=== PATIENT | male | born 1955 | race African-American/Black ===

== ENCOUNTER 2020-12-18 09:02 | Inpatient (IN) ==
[2020-12-18] MEDS ORDERED: GLUCAGON 1 MG VIAL IM PRN (09:50)
[2020-12-18] MEDS ORDERED: DEXTROSE 50% 25 GM/50 ML VIAL IV PRN (09:50)
[2020-12-18 10:54] LABS: Basophils # 0.1 10*3/uL (0.0-0.2); Basophils % 0.8 % (0.0-0.8); Eosinophils # 0.2 10*3/uL (0.0-0.87); Eosinophils % 2.4 % (0.00-10.9); Hematocrit 36.7 VOL% (42.0-52.0); Hemoglobin 11.5 GM/DL (14.0-18.0); Immature Granulocytes % 0.5 %; Immature Granulocytes Absolute 0.03 #; Lymphocytes # 1.3 10*3/uL (1.4-4.0); Mean Corpuscular HGB Conc 31.3 GM/DL (32-36); Mean Corpuscular Volume 75.1 FL (87-102); Mean Platelet Volume 10.8 FL (9.6-12.0); Monocytes % 8.1 % (1.7-12.7); Neutrophils % 68.2 % (38.7-73.9); Platelet Count 285 T/CUMM (130-400); Red Blood Count 4.89 MC/CUMM (3.8-5.5); Red Cell Distribution Width 15.4 % (9.3-17.3); White Blood Count 6.3 T/CUMM (4-12)
[2020-12-18 11:26] LABS: Albumin 3.9 G/DL (3.4-5.0); Calcium 9.5 MG/DL (8.5-10.1); Osmolality,Calculated 273.8 MOS/KG (273-304); Potassium 3.7 MMOL/L (3.5-5.1); Total Protein 7.4 G/DL (6.4-8.2)
[2020-12-18 11:34] LABS: Hypochromasia 1+; Microcytosis 1+; Ovalocytes Slight; Platelet Estimate Adequate
[2020-12-18] MEDS: SODIUM CHLORIDE 0.9% 1,000 ML IV SCH (12:18)
[2020-12-18] MEDS: CHLORHEXIDINE 0.12% ORAL RINSE 60 ML BOTTLE SWISH/SPIT SCH ×2 (12:19→20:54)
[2020-12-18] MEDS ORDERED: NITROGLYCERIN SL 0.4 MG TABLET SL PRN (14:44)
[2020-12-18] MEDS ORDERED: MORPHINE 4 MG/1 ML VIAL IV PRN (14:44)
[2020-12-18] MEDS ORDERED: CLORAZEPATE 3.75 MG TABLET PO PRN (14:44)
[2020-12-18] MEDS ORDERED: FAMOTIDINE 20 MG TABLET PO ONE (14:55)
[2020-12-18] MEDS ORDERED: DIAZEPAM 5 MG TABLET PO ONE (14:55)
[2020-12-18 15:23] LABS: ABG Base Excess 4.3 MMOL/L (-2.5-2.5); ABG HCO3 28.3 MMOL/L (20-26); ABG Oxygen Saturation 95.9 % (95-100); ABG PCO2 45.5 MM HG (35-48); ABG PH 7.419 (7.35-7.45); ABG PO2 77.1 MM HG (80-95); ABG TCO2 26.4 MMOL/L (23-27); Allen Test Positive; Pt O2 Delivery Device Room Air
[2020-12-18] MEDS: CHLORHEXIDINE 4% SOLN 118 ML BOTTLE TOP SCH ×2 (16:50→20:54)
[2020-12-19] MEDS ORDERED: PAPAVERINE 60 MG/2 ML VIAL ONE (04:26)
[2020-12-19] MEDS ORDERED: VANCOMYCIN 1,000 MG VIAL ONE (04:26)
[2020-12-19] MEDS ORDERED: VANCOMYCIN 500 MG VIAL ONE (04:27)
[2020-12-19] MEDS ORDERED: CEFUROXIME INJ 1,500 MG in SODIUM CHLORIDE 0.9% 100 ML IV ONE (05:00)
[2020-12-19] MEDS ORDERED: FAMOTIDINE 20 MG TABLET ONE (05:34)
[2020-12-19] MEDS ORDERED: DIAZEPAM 5 MG TABLET ONE (05:35)
[2020-12-19] MEDS ORDERED: PHENYLEPHRINE 10 MG/1 ML VIAL IV ONE (06:07)
[2020-12-19] MEDS ORDERED: SEVOFLURANE 1 UNIT/15 MINUTE INH ONE ×5 (06:16→09:49)
[2020-12-19] MEDS ORDERED: HEPARIN/NACL 0.9% 2 UNITS/ML 1,000 UNIT/500 ML BAG IV ONE (06:16)
[2020-12-19] MEDS ORDERED: MINERAL OIL/PETROLATUM OPH OINT 3.5 GM TUBE ONE (06:16)
[2020-12-19] MEDS ORDERED: LIDOCAINE 2% 5 ML VIAL ONE ×2 (06:18→09:50)
[2020-12-19] MEDS ORDERED: CALCIUM CHLORIDE 1,000 MG/10 ML VIAL IV ONE ×2 (06:19→07:59)
[2020-12-19] MEDS ORDERED: ETOMIDATE 40 MG/20 ML VIAL IV ONE (06:20)
[2020-12-19] MEDS ORDERED: MIDAZOLAM 10 MG/2 ML VIAL ONE ×4 (06:21→08:48)
[2020-12-19] MEDS ORDERED: SUFentanil 250 MCG/5 ML AMP ONE ×2 (06:22→08:40)
[2020-12-19] MEDS ORDERED: AMINOCAPROIC ACID 5,000 MG/20 ML VIAL ONE (06:22)
[2020-12-19] MEDS ORDERED: SODIUM CHLORIDE 0.9% 250 ML IV ONE (06:22)
[2020-12-19] MEDS ORDERED: LACTATED RINGERS 1,000 ML IV ONE (06:23)
[2020-12-19] MEDS ORDERED: SODIUM CHLORIDE 0.9% 1,000 ML IV ONE (06:24)
[2020-12-19] MEDS ORDERED: VECURONIUM 10 MG VIAL IV ONE ×3 (06:28→08:48)
[2020-12-19] MEDS ORDERED: ePHEDrine 50 MG/ML VIAL ONE (06:57)
[2020-12-19 07:34] LABS: ABG Base Excess 1.8 MMOL/L (-2.5-2.5); ABG PCO2 37.9 MM HG (35-48); ABG PH 7.441 (7.35-7.45); ABG TCO2 23.3 MMOL/L (23-27); Glucose Heart Surgery 103 MG/DL (74-106); Hematocrit Heart Surgery 31.7 PERCENT (42-52); Hemoglobin Heart Surgery 10.2 G/DL (14.0-18.0); Ionized Calcium Arterial 1.25 MMOL/L (1.21-1.46); PCO2 Patient Temp Arterial 37.9 MMHG; PH Patient Temp Arterial 7.441; Patient Temperature 37 CELCIUS; Potassium Heart/CVR 3.2 MMOL/L (3.5-5.1); Sodium Heart/CVR 140 MMOL/L (135-145)
[2020-12-19 07:58] LABS: Bilirubin,Urine Negative (Negative); Blood, Urine Moderate mg/dL (Negative); Glucose,Urine (UA) Negative (Negative); Hyaline Casts,Urine 1 /LPF (0-3); Ketones,Urine Negative (Negative); Mucus,Urine Few /LPF (Occasional); Nitrite,Urine Negative (Negative); Protein,Urine Negative; RBC,Urine 25 /HPF (0-4); Urine Appearance CLEAR (Clear); Urine Color Yellow (Yellow); Urine Specific Gravity 1.018 (1.001-1.035)
[2020-12-19] MEDS ORDERED: POTASSIUM CHLORIDE RIDER 100 ML IV ONE (07:59)
[2020-12-19] MEDS ORDERED: NITROPRUSSIDE 50 MG/2 ML VIAL ONE (07:59)
[2020-12-19] MEDS ORDERED: PHENYLEPHRINE DRIP 40 MG/250 ML PREMIX IV ONE (07:59)
[2020-12-19] MEDS ORDERED: SODIUM BICARBONATE 50 MEQ/50 ML VIAL IV ONE ×2 (07:59→09:51)
[2020-12-19] MEDS ORDERED: CALCIUM CHLORIDE 1,000 MG/10 ML SYRINGE IV ONE (08:00)
[2020-12-19] MEDS ORDERED: diphenhydrAMINE 50 MG/1 ML VIAL ONE (08:48)
[2020-12-19] MEDS ORDERED: EPINEPHrine 1 MG/ML VIAL ONE (08:50)
[2020-12-19] MEDS ORDERED: FAMOTIDINE 20 MG/2 ML VIAL IV ONE (09:16)
[2020-12-19 09:18] LABS: Hematocrit Heart Surgery 22.6 PERCENT (42-52); Hemoglobin Heart Surgery 7.2 G/DL (14.0-18.0); PCO2 Patient Temp Venous 41.8 MM HG; PH Patient Temp Venous 7.409; PO2 Patient Temp Venous 36.3 MM HG; VBG Base Excess 1.9 MEQ/L (0-4); VBG HCO3 25.8 MEQ/L (24-28); VBG Oxygen Saturation 74.2 %; VBG PCO2 46.1 MMHG (41-51); VBG PH 7.38; VBG PO2 41.7 MMHG (17-40); VBG Total CO2 25.8 MMOL/L
[2020-12-19] MEDS ORDERED: ESMOLOL 100 MG/10 ML VIAL IV ONE (09:25)
[2020-12-19] MEDS: CHLORHEXIDINE 4% SOLN 118 ML BOTTLE TOP SCH (09:26)
[2020-12-19] MEDS: CHLORHEXIDINE 0.12% ORAL RINSE 60 ML BOTTLE SWISH/SPIT SCH (09:26)
[2020-12-19 09:49] LABS: ABG Base Excess -0.3 MMOL/L (-2.5-2.5); ABG HCO3 24.2 MMOL/L (20-26); ABG PH 7.395 (7.35-7.45); Glucose Heart Surgery 257 MG/DL (74-106); Hematocrit Heart Surgery 23.6 PERCENT (42-52); Hemoglobin Heart Surgery 7.6 G/DL (14.0-18.0); PH Patient Temp Arterial 7.395; Patient Temperature 37 CELCIUS; Potassium Heart/CVR 3.4 MMOL/L (3.5-5.1); Sodium Heart/CVR 131 MMOL/L (135-145)
[2020-12-19] MEDS ORDERED: ALBUMIN 25% 25 GM/100 ML VIAL IV ONE (09:50)
[2020-12-19] MEDS ORDERED: methylPREDNISolone SOD SUC 1,000 MG/8 ML VIAL ONE (09:50)
[2020-12-19] MEDS ORDERED: MAGNESIUM SULFATE 5 GM/10 ML VIAL IV ONE (09:50)
[2020-12-19] MEDS ORDERED: DEXTROSE 5% KCL 20 MEQ 20 MEQ/1,000 ML BAG IV ONE (09:50)
[2020-12-19] MEDS ORDERED: HEPARIN 10,000 UNIT/10 ML VIAL ONE (09:51)
[2020-12-19] MEDS ORDERED: FUROSEMIDE 20 MG/2 ML VIAL ONE (09:51)
[2020-12-19] MEDS ORDERED: MANNITOL 100 GM/500 ML BAG IV ONE (09:51)
[2020-12-19] MEDS ORDERED: PROTAMINE SULFATE 250 MG/25 ML VIAL IV ONE (09:51)
[2020-12-19] MEDS: SODIUM CHLORIDE 0.9% 1,000 ML IV SCH (10:00)
[2020-12-19] MEDS ORDERED: MAGNESIUM SULF RIDER 4 GM/100 ML PREMIX IV PRN (10:01)
[2020-12-19] MEDS ORDERED: CHLORHEXIDINE 4% SOLN 118 ML BOTTLE TOP PRN (10:01)
[2020-12-19] MEDS ORDERED: ONDANSETRON 4 MG/2 ML VIAL IV PRN (10:01)
[2020-12-19] MEDS ORDERED: DEXTROSE 50% 25 GM/50 ML VIAL IV PRN ×2 (10:01)
[2020-12-19] MEDS ORDERED: MORPHINE 10 MG/1 ML VIAL IV PRN (10:01)
[2020-12-19] MEDS ORDERED: MORPHINE 4 MG/1 ML VIAL IV PRN (10:01)
[2020-12-19] MEDS ORDERED: VECURONIUM 10 MG VIAL IV PRN ×2 (10:01)
[2020-12-19] MEDS ORDERED: INSULIN REGULAR DRIP 100 ML IV SCH (10:01)
[2020-12-19] MEDS ORDERED: CALCIUM CHLORIDE 1,000 MG/10 ML SYRINGE IV PRN (10:01)
[2020-12-19] MEDS ORDERED: PHENYLEPHRINE DRIP 40 MG/250 ML PREMIX IV PRN (10:01)
[2020-12-19] MEDS ORDERED: SODIUM CHLORIDE 0.45% 1,000 ML IV SCH ×2 (10:01)
[2020-12-19] MEDS ORDERED: POTASSIUM CHLORIDE RIDER 10 MEQ in PREMIX 1 EACH IV PRN (10:01)
[2020-12-19] MEDS ORDERED: MIDAZOLAM 10 MG/2 ML VIAL IV PRN (10:01)
[2020-12-19] MEDS ORDERED: MAGNESIUM SULF RIDER 2 GM/50 ML PREMIX IV PRN (10:01)
[2020-12-19] MEDS ORDERED: ACETAMINOPHEN 650 MG SUPP RECTAL PRN (10:01)
[2020-12-19] MEDS ORDERED: INSULIN REGULAR 100 UNIT/ML IV PRN (10:01)
[2020-12-19] MEDS ORDERED: MIDAZOLAM 2 MG/2 ML VIAL IV PRN (10:01)
[2020-12-19] MEDS ORDERED: NITROPRUSSIDE 100 MG in DEXTROSE 5% 250 ML IV PRN (10:01)
[2020-12-19] MEDS ORDERED: INSULIN REGULAR 100 UNIT/ML IV ONE (10:01)
[2020-12-19 10:47] LABS: ABG Base Excess 1.2 MMOL/L (-2.5-2.5); ABG Oxygen Saturation 99.2 % (95-100); ABG PCO2 42.2 MM HG (35-48); ABG PH 7.408 (7.35-7.45); ABG PO2 275.4 MM HG (80-95); ABG TCO2 27.3 MMOL/L (23-27); Glucose Heart Surgery 189 MG/DL (74-106); Hemoglobin Heart Surgery 9.4 G/DL (14.0-18.0); Potassium Heart/CVR 3.4 MMOL/L (3.5-5.1)
[2020-12-19 10:51] LABS: Monocytes % 6.6 % (1.7-12.7)
[2020-12-19] MEDS: POTASSIUM CHLORIDE RIDER 20 MEQ in PREMIX 1 EACH IV PRN ×4 (11:00→16:05)
[2020-12-19 11:04] LABS: Basophils # 0.1 10*3/uL (0.0-0.2); Basophils % 0.6 % (0.0-0.8); Eosinophils # 0.2 10*3/uL (0.0-0.87); Hematocrit 28.8 VOL% (42.0-52.0); Immature Granulocytes % 1.2 %; Immature Granulocytes Absolute 0.14 #; Lymphocytes # 1.3 10*3/uL (1.4-4.0); Lymphocytes % 10.9 % (21.2-54.2); Mean Corpuscular HGB Conc 30.9 GM/DL (32-36); Mean Corpuscular Volume 75.8 FL (87-102); Mean Platelet Volume 10.6 FL (9.6-12.0); Neutrophils % 78.7 % (38.7-73.9); Platelet Count 253 T/CUMM (130-400); Red Cell Distribution Width 15.4 % (9.3-17.3)
[2020-12-19 11:07] LABS: Hemoglobin 8.9 GM/DL (14.0-18.0); White Blood Count 11.5 T/CUMM (4-12)
[2020-12-19 11:08] LABS: INR 1.3; PT Patient Result 14.2 SECS (10.5-12.0); Partial Thromboplastin Time 26.4 SECS (23.9-33.8)
[2020-12-19 11:20] LABS: CKMB % 1.9 %
[2020-12-19 11:29] LABS: Albumin 3.2 G/DL (3.4-5.0); Calcium 9.8 MG/DL (8.5-10.1); Potassium 3.5 MMOL/L (3.5-5.1); Total Protein 5.7 G/DL (6.4-8.2)
[2020-12-19 11:40] LABS: Troponin I 0.786 NG/ML (0.00-0.045)
[2020-12-19 12:16] LABS: ABG Base Excess 0.3 MMOL/L (-2.5-2.5); ABG HCO3 24.8 MMOL/L (20-26); Glucose Heart Surgery 192 MG/DL (74-106); Hematocrit Heart Surgery 28.7 PERCENT (42-52); Hemoglobin Heart Surgery 9.2 G/DL (14.0-18.0); Potassium Heart/CVR 4.9 MMOL/L (3.5-5.1)
[2020-12-19] MEDS: ALBUMIN 5% 12.5 GM/250 ML VIAL IV PRN ×4 (13:45→16:10)
[2020-12-19 13:46] LABS: ABG Base Excess -0.4 MMOL/L (-2.5-2.5); ABG HCO3 24.1 MMOL/L (20-26); ABG Oxygen Saturation 99.6 % (95-100); ABG PCO2 45.7 MM HG (35-48); ABG PH 7.354 (7.35-7.45); Glucose Heart Surgery 160 MG/DL (74-106); Hematocrit Heart Surgery 33.3 PERCENT (42-52); Hemoglobin Heart Surgery 10.8 G/DL (14.0-18.0); Potassium Heart/CVR 4.4 MMOL/L (3.5-5.1)
[2020-12-19] MEDS: LACTATED RINGERS 250 ML IV PRN ×3 (13:55→16:30)
[2020-12-19 15:54] LABS: ABG Base Excess -0.8 MMOL/L (-2.5-2.5); ABG HCO3 23.8 MMOL/L (20-26); ABG Oxygen Saturation 99.4 % (95-100); ABG PCO2 46.8 MM HG (35-48); ABG TCO2 23.1 MMOL/L (23-27); Glucose Heart Surgery 95 MG/DL (74-106); Hematocrit Heart Surgery 31.3 PERCENT (42-52); Hemoglobin Heart Surgery 10.1 G/DL (14.0-18.0); Potassium Heart/CVR 4.3 MMOL/L (3.5-5.1)
[2020-12-19] MEDS: CEFUROXIME INJ 1,500 MG in SODIUM CHLORIDE 0.9% 100 ML IV SCH (17:45)
[2020-12-19 18:04] LABS: ABG HCO3 24.5 MMOL/L (20-26); ABG Oxygen Saturation 99.6 % (95-100); ABG PCO2 45.1 MM HG (35-48); ABG PH 7.362 (7.35-7.45); ABG TCO2 23.5 MMOL/L (23-27); Glucose Heart Surgery 95 MG/DL (74-106); Hematocrit Heart Surgery 29.3 PERCENT (42-52); Hemoglobin Heart Surgery 9.5 G/DL (14.0-18.0)
[2020-12-19] MEDS ORDERED: FUROSEMIDE 40 MG/4 ML VIAL IV PRN ×2 (18:27→18:29)
[2020-12-19 18:33] LABS: CKMB % 2.2 %
[2020-12-19 18:39] LABS: Troponin I 2.52 NG/ML (0.00-0.045)
[2020-12-19 20:06] LABS: ABG Base Excess -2.7 MMOL/L (-2.5-2.5); ABG HCO3 22.9 MMOL/L (20-26); ABG Oxygen Saturation 98.1 % (95-100); ABG PCO2 43.2 MM HG (35-48); ABG PH 7.343 (7.35-7.45); ABG PO2 133.2 MM HG (80-95); ABG TCO2 24.3 MMOL/L (23-27); Glucose Heart Surgery 105 MG/DL (74-106); Hemoglobin Heart Surgery 10.3 G/DL (14.0-18.0)
[2020-12-19] MEDS ORDERED: CHLORHEXIDINE 0.12% ORAL RINSE 60 ML BOTTLE SWISH/SPIT SCH (21:00)
[2020-12-19 23:25] LABS: ABG Base Excess -4.5 MMOL/L (-2.5-2.5); ABG HCO3 22.3 MMOL/L (20-26); ABG Oxygen Saturation 97.2 % (95-100); ABG PH 7.276 (7.35-7.45); ABG PO2 109.2 MM HG (80-95); ABG TCO2 23.8 MMOL/L (23-27); Glucose Heart Surgery 138 MG/DL (74-106); Hemoglobin Heart Surgery 10.7 G/DL (14.0-18.0); Potassium Heart/CVR 5.3 MMOL/L (3.5-5.1)
[2020-12-20 00:36] LABS: ABG Base Excess -3.6 MMOL/L (-2.5-2.5); ABG HCO3 22.4 MMOL/L (20-26); ABG Oxygen Saturation 98.2 % (95-100); ABG PH 7.324 (7.35-7.45); ABG PO2 136.4 MM HG (80-95); ABG TCO2 23.7 MMOL/L (23-27); Glucose Heart Surgery 140 MG/DL (74-106); Hemoglobin Heart Surgery 10.8 G/DL (14.0-18.0); Potassium Heart/CVR 5.3 MMOL/L (3.5-5.1)
[2020-12-20] MEDS: ALBUMIN 5% 12.5 GM/250 ML VIAL IV PRN ×2 (02:43→05:08)
[2020-12-20 02:49] LABS: ABG Base Excess -2.5 MMOL/L (-2.5-2.5); ABG HCO3 22.4 MMOL/L (20-26); ABG Oxygen Saturation 98.6 % (95-100); ABG PCO2 41.6 MM HG (35-48); Glucose Heart Surgery 165 MG/DL (74-106); Hematocrit Heart Surgery 30.9 PERCENT (42-52); Potassium Heart/CVR 5.1 MMOL/L (3.5-5.1)
[2020-12-20 03:53] LABS: ABG HCO3 22.7 MMOL/L (20-26); ABG Oxygen Saturation 98.9 % (95-100); ABG PCO2 49.5 MM HG (35-48); ABG PH 7.305 (7.35-7.45); ABG TCO2 22.7 MMOL/L (23-27); Glucose Heart Surgery 150 MG/DL (74-106); Hematocrit Heart Surgery 30.6 PERCENT (42-52); Hemoglobin Heart Surgery 9.9 G/DL (14.0-18.0)
[2020-12-20 03:56] LABS: Basophils % 0.1 % (0.0-0.8); Hematocrit 31.5 VOL% (42.0-52.0); Hemoglobin 9.7 GM/DL (14.0-18.0); Immature Granulocytes % 0.6 %; Immature Granulocytes Absolute 0.09 #; Lymphocytes # 0.8 10*3/uL (1.4-4.0); Lymphocytes % 5.1 % (21.2-54.2); Mean Corpuscular HGB Conc 30.8 GM/DL (32-36); Mean Corpuscular Volume 78.4 FL (87-102); Monocytes % 6.3 % (1.7-12.7); Neutrophils % 87.9 % (38.7-73.9); Platelet Count 217 T/CUMM (130-400); Red Blood Count 4.02 MC/CUMM (3.8-5.5); Red Cell Distribution Width 16.4 % (9.3-17.3); White Blood Count 14.7 T/CUMM (4-12)
[2020-12-20 04:20] LABS: Albumin 4.1 G/DL (3.4-5.0); Bilirubin,Direct 0.44 MG/DL (0.0-0.20); Bilirubin,Total 1.4 MG/DL (0.2-1.0); Calcium 9.2 MG/DL (8.5-10.1); Osmolality,Calculated 283.4 MOS/KG (273-304); Potassium 5.1 MMOL/L (3.5-5.1); Total Protein 6.4 G/DL (6.4-8.2)
[2020-12-20 04:27] LABS: Troponin I 3.05 NG/ML (0.00-0.045)
[2020-12-20 05:19] LABS: ABG Base Excess -1.5 MMOL/L (-2.5-2.5); ABG HCO3 23.2 MMOL/L (20-26); ABG Oxygen Saturation 99.3 % (95-100); ABG PCO2 43.7 MM HG (35-48); ABG PH 7.351 (7.35-7.45); ABG TCO2 22.1 MMOL/L (23-27); Glucose Heart Surgery 149 MG/DL (74-106); Hematocrit Heart Surgery 30.6 PERCENT (42-52); Hemoglobin Heart Surgery 9.9 G/DL (14.0-18.0)
[2020-12-20] MEDS: CEFUROXIME INJ 1,500 MG in SODIUM CHLORIDE 0.9% 100 ML IV SCH ×2 (05:31→18:26)
[2020-12-20] MEDS: LACTATED RINGERS 250 ML IV PRN (05:38)
[2020-12-20 07:56] LABS: ABG Base Excess -2.2 MMOL/L (-2.5-2.5); ABG HCO3 23.6 MMOL/L (20-26); ABG Oxygen Saturation 98.2 % (95-100); ABG PCO2 44.9 MM HG (35-48); ABG PH 7.339 (7.35-7.45)
[2020-12-20] MEDS ORDERED: MAGNESIUM SULF RIDER 4 GM/100 ML PREMIX IV PRN (08:57)
[2020-12-20] MEDS ORDERED: GLUCAGON 1 MG VIAL IM PRN (08:57)
[2020-12-20] MEDS ORDERED: ACETAMINOPHEN 325 MG TABLET PO PRN (08:57)
[2020-12-20] MEDS ORDERED: MAGNESIUM SULF RIDER 2 GM/50 ML PREMIX IV PRN (08:57)
[2020-12-20] MEDS ORDERED: ZALEPLON 5 MG CAPSULE PO PRN (08:57)
[2020-12-20] MEDS ORDERED: POTASSIUM CHLORIDE 20 MEQ TABLET PO PRN (08:57)
[2020-12-20] MEDS ORDERED: DEXTROSE 50% 25 GM/50 ML VIAL IV PRN (08:57)
[2020-12-20] MEDS ORDERED: MAGNESIUM HYDROXIDE SUSP 30 ML UDCUP PO PRN (08:57)
[2020-12-20] MEDS ORDERED: ALUMINUM/MAGNES/SIMETH MAX STR 30 ML UDCUP PO PRN (08:57)
[2020-12-20] MEDS: ONDANSETRON 4 MG/2 ML VIAL IV PRN ×2 (09:29→15:28)
[2020-12-20] MEDS: SODIUM CHLOR 0.45% KCL 20 MEQ 20 MEQ/1,000 ML BAG IV SCH (09:30)
[2020-12-20] MEDS: oxyCODONE/ACETAMINOPHEN 5-325 MG TABLET PO PRN ×2 (09:56→23:55)
[2020-12-20] MEDS: PANTOPRAZOLE 40 MG TABLET PO SCH (10:04)
[2020-12-20] MEDS: ASPIRIN EC 325 MG TABLET PO SCH (10:04)
[2020-12-20] MEDS: amLODIPine 5 MG TABLET PO SCH (10:05)
[2020-12-20] MEDS: DOCUSATE SODIUM 100 MG CAPSULE PO SCH (10:05)
[2020-12-20] MEDS: FERROUS SULFATE 325 MG TABLET PO SCH (10:05)
[2020-12-20] MEDS: CHOLECALCIFEROL 5,000 UNIT TABLET PO SCH (10:05)
[2020-12-20] MEDS: CHLORHEXIDINE 0.12% ORAL RINSE 60 ML BOTTLE SWISH/SPIT SCH ×2 (10:05→20:39)
[2020-12-20 10:36] LABS: ABG Base Excess -4.4 MMOL/L (-2.5-2.5); ABG HCO3 21.7 MMOL/L (20-26); ABG Oxygen Saturation 97.8 % (95-100); ABG PCO2 44.4 MM HG (35-48); ABG PH 7.307 (7.35-7.45); ABG PO2 120.5 MM HG (80-95); ABG TCO2 23.1 MMOL/L (23-27)
[2020-12-20] MEDS ORDERED: HYDROmorphone 2 MG/1 ML VIAL IV PRN (11:10)
[2020-12-20] MEDS: HYDROmorphone 2 MG/1 ML VIAL IV PRN ×2 (11:21→12:19)
[2020-12-20 11:39] LABS: CKMB % 0.6 %
[2020-12-20 11:42] LABS: Troponin I 3.12 NG/ML (0.00-0.045)
[2020-12-20] MEDS: carvediloL 3.125 MG TABLET PO SCH ×2 (11:53→20:38)
[2020-12-20 17:05] LABS: CKMB % 0.6 %
[2020-12-20 17:09] LABS: Troponin I 2.23 NG/ML (0.00-0.045)
[2020-12-20] MEDS: ALBUTEROL/IPRATROPIUM 3 ML NEB RESP TX SCH ×2 (19:00→19:15)
[2020-12-20] MEDS: ATORVASTATIN 20 MG TABLET PO SCH (20:38)
[2020-12-21] MEDS: ALBUTEROL/IPRATROPIUM 3 ML NEB RESP TX SCH ×4 (02:00→19:34)
[2020-12-21] MEDS: oxyCODONE/ACETAMINOPHEN 5-325 MG TABLET PO PRN (03:29)
[2020-12-21] MEDS: ONDANSETRON 4 MG/2 ML VIAL IV PRN (04:37)
[2020-12-21] MEDS ORDERED: FUROSEMIDE 40 MG/4 ML VIAL IV ONE (06:00)
[2020-12-21 07:01] LABS: Albumin 3.4 G/DL (3.4-5.0); Bilirubin,Direct 0.31 MG/DL (0.0-0.20); Bilirubin,Indirect 1.2 MG/DL (0.0-1.0); Bilirubin,Total 1.5 MG/DL (0.2-1.0); CKMB % 0.3 %; Calcium 8.9 MG/DL (8.5-10.1); Osmolality,Calculated 280.5 MOS/KG (273-304); Potassium 4.4 MMOL/L (3.5-5.1)
[2020-12-21 07:06] LABS: Troponin I 1.46 NG/ML (0.00-0.045)
[2020-12-21 07:30] LABS: Basophils % 0.1 % (0.0-0.8); Hematocrit 30.6 VOL% (42.0-52.0); Hemoglobin 9.5 GM/DL (14.0-18.0); Immature Granulocytes % 0.8 %; Immature Granulocytes Absolute 0.14 #; Lymphocytes # 0.7 10*3/uL (1.4-4.0); Lymphocytes % 4.4 % (21.2-54.2); Mean Corpuscular Volume 78.5 FL (87-102); Mean Platelet Volume 11.4 FL (9.6-12.0); Monocytes % 8.2 % (1.7-12.7); Neutrophils % 86.5 % (38.7-73.9); Platelet Count 200 T/CUMM (130-400); Red Cell Distribution Width 16.7 % (9.3-17.3); White Blood Count 16.7 T/CUMM (4-12)
[2020-12-21 08:02] LABS: Hypochromasia 2+; Lymphocytes 3 % (20-55); Microcytosis 2+; Platelet Estimate Normal; Polychromasia Slight; Segmented Neutrophils 90 % (50-85); Total Cells Counted 100
[2020-12-21] MEDS: PANTOPRAZOLE 40 MG TABLET PO SCH (08:04)
[2020-12-21] MEDS: CHOLECALCIFEROL 5,000 UNIT TABLET PO SCH (08:04)
[2020-12-21] MEDS: amLODIPine 5 MG TABLET PO SCH (08:04)
[2020-12-21] MEDS: DOCUSATE SODIUM 100 MG CAPSULE PO SCH (08:04)
[2020-12-21] MEDS: ASPIRIN EC 325 MG TABLET PO SCH (08:04)
[2020-12-21] MEDS: SODIUM CHLOR 0.45% KCL 20 MEQ 20 MEQ/1,000 ML BAG IV SCH (08:05)
[2020-12-21] MEDS: FERROUS SULFATE 325 MG TABLET PO SCH (08:05)
[2020-12-21] MEDS: CHLORHEXIDINE 0.12% ORAL RINSE 60 ML BOTTLE SWISH/SPIT SCH ×2 (08:05→21:16)
[2020-12-21] MEDS: carvediloL 3.125 MG TABLET PO SCH ×2 (08:05→21:15)
[2020-12-21] MEDS ORDERED: NITROGLYCERIN SL 0.4 MG TABLET SL PRN (08:42)
[2020-12-21] MEDS ORDERED: hydroCHLOROthiazide 12.5 MG CAPSULE PO SCH (09:00)
[2020-12-21] MEDS: ATORVASTATIN 20 MG TABLET PO SCH (21:16)
[2020-12-22] MEDS: ALBUTEROL/IPRATROPIUM 3 ML NEB RESP TX SCH ×4 (00:31→19:16)
[2020-12-22 05:21] LABS: Basophils % 0.1 % (0.0-0.8); Eosinophils % 0.1 % (0.00-10.9); Hematocrit 31.7 VOL% (42.0-52.0); Immature Granulocytes % 0.5 %; Immature Granulocytes Absolute 0.07 #; Lymphocytes # 1.3 10*3/uL (1.4-4.0); Lymphocytes % 9.3 % (21.2-54.2); Mean Corpuscular HGB Conc 31.5 GM/DL (32-36); Mean Corpuscular Volume 76.9 FL (87-102); Mean Platelet Volume 10.9 FL (9.6-12.0); Monocytes % 12.3 % (1.7-12.7); Neutrophils % 77.7 % (38.7-73.9); Platelet Count 218 T/CUMM (130-400); Red Blood Count 4.12 MC/CUMM (3.8-5.5); Red Cell Distribution Width 15.9 % (9.3-17.3); White Blood Count 14.1 T/CUMM (4-12)
[2020-12-22 06:04] LABS: Alanine Aminotransferase 31 U/L (16-61); Albumin 3.5 G/DL (3.4-5.0); Alkaline Phosphatase 38 U/L (45-117); Aspartate Amino Transferase 56 U/L (0-37); Bilirubin,Indirect 1.2 MG/DL (0.0-1.0); Blood Urea Nitrogen 31 MG/DL (7-18); Calcium 9.5 MG/DL (8.5-10.1); Carbon Dioxide 31 MMOL/L (21-32); Estimated Glom Filtration Rate 56 ML/MIN; Glucose 84 MG/DL (74-106); Osmolality,Calculated 280.7 MOS/KG (273-304); Sodium 138 MMOL/L (136-145); Total Protein 6.6 G/DL (6.4-8.2)
[2020-12-22 06:05] LABS: Troponin I 0.835 NG/ML (0.00-0.045)
[2020-12-22] MEDS: CHLORHEXIDINE 0.12% ORAL RINSE 60 ML BOTTLE SWISH/SPIT SCH ×2 (08:29→21:54)
[2020-12-22] MEDS: PANTOPRAZOLE 40 MG TABLET PO SCH (08:30)
[2020-12-22] MEDS: amLODIPine 5 MG TABLET PO SCH (08:30)
[2020-12-22] MEDS: FERROUS SULFATE 325 MG TABLET PO SCH (08:30)
[2020-12-22] MEDS: DOCUSATE SODIUM 100 MG CAPSULE PO SCH (08:30)
[2020-12-22] MEDS: ASPIRIN EC 325 MG TABLET PO SCH (08:30)
[2020-12-22] MEDS: carvediloL 3.125 MG TABLET PO SCH ×2 (08:30→21:53)
[2020-12-22] MEDS: CHOLECALCIFEROL 5,000 UNIT TABLET PO SCH (08:30)
[2020-12-22] MEDS: LACTULOSE 20 GM/30 ML UDCUP PO PRN ×2 (09:37→17:12)
[2020-12-22] MEDS: ATORVASTATIN 20 MG TABLET PO SCH (21:52)
[2020-12-23] MEDS: ALBUTEROL/IPRATROPIUM 3 ML NEB RESP TX SCH ×2 (00:40→07:19)
[2020-12-23 05:58] LABS: Basophils % 0.3 % (0.0-0.8); Eosinophils # 0.1 10*3/uL (0.0-0.87); Immature Granulocytes % 0.7 %; Immature Granulocytes Absolute 0.08 #; Lymphocytes # 1.5 10*3/uL (1.4-4.0); Lymphocytes % 12.4 % (21.2-54.2); Mean Corpuscular HGB Conc 31.4 GM/DL (32-36); Mean Corpuscular Volume 77.1 FL (87-102); Mean Platelet Volume 11.5 FL (9.6-12.0); Monocytes % 13.9 % (1.7-12.7); Neutrophils % 71.7 % (38.7-73.9); Platelet Count 256 T/CUMM (130-400); Red Blood Count 4.54 MC/CUMM (3.8-5.5); Red Cell Distribution Width 15.7 % (9.3-17.3); White Blood Count 11.9 T/CUMM (4-12)
[2020-12-23 06:19] LABS: Calcium 9.6 MG/DL (8.5-10.1); Osmolality,Calculated 280.5 MOS/KG (273-304); Potassium 3.8 MMOL/L (3.5-5.1)
[2020-12-23] MEDS: LACTULOSE 20 GM/30 ML UDCUP PO PRN (06:56)
[2020-12-23] MEDS: ASPIRIN EC 325 MG TABLET PO SCH (08:23)
[2020-12-23] MEDS: CHOLECALCIFEROL 5,000 UNIT TABLET PO SCH (08:23)
[2020-12-23] MEDS: FERROUS SULFATE 325 MG TABLET PO SCH (08:24)
[2020-12-23] MEDS: DOCUSATE SODIUM 100 MG CAPSULE PO SCH (08:24)
[2020-12-23] MEDS: PANTOPRAZOLE 40 MG TABLET PO SCH (08:24)
[2020-12-23] MEDS: CHLORHEXIDINE 0.12% ORAL RINSE 60 ML BOTTLE SWISH/SPIT SCH (08:24)
[2020-12-23] MEDS ORDERED: carvediloL 6.25 MG TABLET PO SCH (09:00)
[2020-12-23] MEDS ORDERED: POLYETHYLENE GLYCOL POWDER 17 GM PACK PO SCH (09:00)
[2020-12-23 12:29] VITALS: BP 104/59
== END 2020-12-23 12:44 | disposition home health service (06) | DRG 236 ==
LOC: N.4E 09:02 → N.CVR 12-19 10:02 → N.TELES 12-20 15:15